=== PATIENT | female | born 1970 ===

== ENCOUNTER 2018-05-01 09:31 | Outpatient (CLI) | payer OTHER ==
[~2018-05-01] VITALS: Ht 160 cm; Wt 113.4 kg
[2018-05-01] MEDS ORDERED: ZANTAC300 MG PO (12:02)
[2018-05-01] MEDS ORDERED: PROTONIX40 MG PO (12:04)
== END 2018-05-01 09:45 | disposition home or self-care (01) ==
LOC: OFIC 805 09:31
DX: R05 Cough (principal); K21.9 Gastro-esophageal reflux disease without esophagitis; J31.0 Chronic rhinitis; J37.0 Chronic laryngitis; H69.81 Other specified disorders of Eustachian tube, right ear; E66.8 Other obesity